=== PATIENT | male | born 1985 | race African-American/Black ===

== ENCOUNTER 2021-05-20 15:00 | Emergency (ER) | payer MEDICAID ==
[~2021-05-20] VITALS: Ht 177.8 cm; Wt 80.0 kg
[2021-05-20 17:18] LABS: HEMATOCRIT. 30.4 % (42.0-52.0); HEMOGLOBIN. 9.9 g/dL (14.0-18.0); MEAN CORPUSCULAR HEMOGLOBIN 28.6 pg (28.0-32.0); MEAN CORPUSCULAR VOLUME 87.7 fL (80.0-94.0); MEAN PLATELET VOLUME 6.8 fl (7.4-10.4); PLATELET 386 x1000/uL (130-400); RED BLOOD CELL COUNT 3.46 mill/uL (4.7-6.1); RED CELL DISTRIBUTION WIDTH 14.6 % (11.6-14.6)
[2021-05-20 17:23] LABS: CHLORIDE 97 mEq/L (98-107)
[2021-05-20 18:20] LABS: PLATELET ESTIMATE NORMAL
[2021-05-20 19:40] VITALS: BP 110/65
[2021-05-20] MEDS ORDERED: CEFTRIAXONE 1 G PREMIX 50 ML IV ONE (19:45)
== END 2021-05-20 19:48 | disposition left against medical advice (07) ==
LOC: ER 15:00
DX: R53.1 Weakness (principal); R05.9 Cough, unspecified; R00.0 Tachycardia, unspecified; Z85.819 Personal history of malignant neoplasm of unspecified site of lip, oral cavity, and pharynx; Z20.822 Contact with and (suspected) exposure to COVID-19
CPT/HCPCS: 36415; 71045; 80053; 83880; 84484; 85025; 93005; 99285